=== PATIENT | male | born 1975 | race Caucasian/White ===

== ENCOUNTER 2018-11-02 18:22 | Inpatient (IN) | payer BC ==
[2018-11-02 18:46] LABS: ABNORMAL IP MESSAGE 1; ADD MAN DIFF? NO; BASOPHILS % 0.3 % (0.0-2.0); HEMATOCRIT 41.1 % (42.0-52.0); HEMOGLOBIN 13.2 g/dl (14.0-18.0); LYMPHOCYTES % 8.5 % (15.0-51.0); MEAN CORPUSCULAR HEMOGLOBIN 28.8 pg (29.0-33.0); MEAN CORPUSCULAR HGB CONC 32.1 g/dl (32.0-37.0); MEAN CORPUSCULAR VOLUME 89.5 fl (82.0-101.0); MEAN PLATELET VOLUME 10.6 fl (7.4-10.4); MONOCYTE # 1.4 10^3/ul (0.3-0.9); MONOCYTES % 12.1 % (0.0-11.0); NEUTROPHIL # 9.1 10^3/ul (1.6-7.5); NEUTROPHILS % 77.9 % (39.0-77.0); NUCLEATED RED BLOOD CELLS% 0.2 /100WBC (0.0-0.0); PLATELET COUNT 107 10^3/UL (140-415); POSITIVE DIFF @See below; RED BLOOD COUNT 4.59 10^6/ul (4.70-6.10); RED CELL DISTRIBUTION WIDTH 24.6 % (11.5-14.5)
[2018-11-02 18:46] LABS: WHITE BLOOD COUNT 11.7 10^3/ul (4.8-10.8)
[2018-11-02] MEDS: SOD CHLORIDE 0.9% 1,000 ML IV ×2 (18:49→22:57)
[2018-11-02 19:13] LABS: INR 2.71; PROTIME 28.8 Sec (11.9-14.9); PT RATIO 2.3
[2018-11-02 19:14] LABS: PARTIAL THROMBOPLASTIN TIME 36.3 Sec (23.0-35.0)
[2018-11-02 19:16] LABS: ALANINE AMINOTRANSFERASE 679 IU/L (13-69); ALBUMIN/GLOBULIN RATIO 0.78; ALKALINE PHOSPHATASE 534 IU/L (42-121); ANION GAP 19 (5-13); BILIRUBIN,TOTAL 11.5 mg/dl (0.2-1.3); BLOOD UREA NITROGEN 52 mg/dl (7-20); CALCIUM 8.8 mg/dl (8.4-10.2); CARBON DIOXIDE 18 mmol/L (21-31); CHLORIDE 88 mmol/L (97-110); GLUCOSE 116 mg/dl (70-220); LIPASE 122 U/L (23-300); SODIUM 125 mmol/L (135-144); TOTAL PROTEIN 6.8 g/dl (6.1-8.1)
[2018-11-02 19:23] LABS: Estimated GFR > 60 mL/min (>60)
[2018-11-02 19:27] LABS: CREATININE 1.27 mg/dl (0.61-1.24)
[2018-11-02 19:28] LABS: TROPONIN-I < 0.012 ng/ml (0.000-0.120)
[2018-11-02] MEDS ORDERED: DEXTROSE 50% 50 ML SYRINGE IV (19:30)
[2018-11-02 19:41] LABS: ASPARTATE AMINO TRANSFERASE 3177 IU/L (15-46)
[2018-11-02] MEDS: INSULIN REGULAR, HUMAN 100 UNIT/1 ML 3ML VIAL IVP (19:42)
[2018-11-02] MEDS: DEXTROSE 50% 50 ML SYRINGE IV (19:43)
[2018-11-02] MEDS: CA CHLORIDE 10% 10 ML SYRINGE IV (19:43)
[2018-11-02] MEDS: ALBUTEROL 0.083% (NEB) 2.5 MG/3 ML AMP HHN (19:57)
[2018-11-02] MEDS ORDERED: BISACODYL 10 MG SUPP PR (21:00)
[2018-11-02] MEDS ORDERED: ONDANSETRON 4 MG INJ IV (21:00)
[2018-11-02] MEDS ORDERED: MAGNESIUM HYDROXIDE 30ML CUP PO (21:00)
[2018-11-02] MEDS ORDERED: NACL 0.9% 3 ML SYG IV (21:00)
[2018-11-02] MEDS: NA POLYST SULFON 15 GM/60 ML BTL PO (21:51)
[2018-11-02] MEDS: NA POLYST SULFON 15 GM/60 ML BTL NGT (22:53)
[2018-11-02] MEDS: ZOLPIDEM 5 MG TAB PO (23:06)
[2018-11-03] MEDS: morphine 2 MG INJ IV ×3 (02:36→11:18)
[2018-11-03] MEDS: SOD CHLORIDE 0.9% 1,000 ML IV ×2 (04:16→11:12)
[2018-11-03] MEDS: PANTOPRAZOLE (EC) 40 MG TAB PO (05:11)
[2018-11-03 07:01] LABS: ANION GAP 15 (5-13); BLOOD UREA NITROGEN 56 mg/dl (7-20); CALCIUM 8.9 mg/dl (8.4-10.2); CARBON DIOXIDE 18 mmol/L (21-31); CHLORIDE 94 mmol/L (97-110); CREATININE 1.47 mg/dl (0.61-1.24); Estimated GFR 52 mL/min (>60); GLUCOSE 110 mg/dl (70-220); SODIUM 127 mmol/L (135-144)
[2018-11-03 07:19] LABS: POTASSIUM 6.9 mmol/L (3.5-5.1)
[2018-11-03] MEDS: NA POLYST SULFON 15 GM/60 ML BTL PO (11:13)
[2018-11-03] MEDS ORDERED: morphine (DRIP) 100 MG/100 ML 100 ML IV (11:30)
[2018-11-03] MEDS ORDERED: LORAZEPAM 2 MG INJ IV (11:30)
[2018-11-03] MEDS: MAGNESIUM CITRATE 300 ML BTL PO (12:30)
[2018-11-03] MEDS: morphine (DRIP) 100 MG/100 ML 100 ML IV (14:31)
[2018-11-03] MEDS ORDERED: ONDANSETRON 4 MG INJ IV (16:00)
[2018-11-03] MEDS ORDERED: BISACODYL 10 MG SUPP PR (16:00)
[2018-11-03] MEDS ORDERED: ATROPINE 1% 5 ML OPH SL (16:00)
== END 2018-11-05 05:05 | disposition expired | DRG 375 ==
LOC: E/R 18:22 → TEL 11-03 12:25 → PP2 11-03 23:28 → TEL 19:48
DX: C18.9 Malignant neoplasm of colon, unspecified (principal); C78.7 Secondary malignant neoplasm of liver and intrahepatic bile duct; N17.9 Acute kidney failure, unspecified; E87.1 Hypo-osmolality and hyponatremia; F05 Delirium due to known physiological condition; G93.49 Other encephalopathy; Z51.5 Encounter for palliative care; E86.0 Dehydration; E87.5 Hyperkalemia; G89.3 Neoplasm related pain (acute) (chronic); K72.10 Chronic hepatic failure without coma; K59.03 Drug induced constipation; T40.2X5A Adverse effect of other opioids, initial encounter; Z92.21 Personal history of antineoplastic chemotherapy
CPT/HCPCS: 36415; 71045; 80048; 80053; 82962; 83690; 84484; 85025; 85610; 85730; 86850; 86900; 86901; 87040-91; 94664; 96374; 96375; 99285-25